=== PATIENT | female | born 1960 | race Caucasian/White ===

== ENCOUNTER 2016-08-24 07:42 | Emergency (ER) | payer OTHER ==
[~2016-08-24] VITALS: Ht 154.9 cm; Wt 63.5 kg
[2016-08-24] MEDS ORDERED: METF500T4 PO (08:27)
[2016-08-24 08:42] LABS: GLUCOSE,POINT OF CARE 270 MG/DL (70-110)
[2016-08-24] MEDS ORDERED: ONDANSETRON HCL 4 MG TABLET PO ONE (10:30)
[2016-08-24] MEDS ORDERED: IBUPROFEN 800 MG TABLET PO ONE (10:30)
[2016-08-24 12:26] VITALS: BP 114/71
== END 2016-08-24 12:47 | disposition home or self-care (01) ==
LOC: EMS 07:45
DX: J20.9 Acute bronchitis, unspecified (principal); E11.9 Type 2 diabetes mellitus without complications; E78.00 Pure hypercholesterolemia, unspecified
CPT/HCPCS: 71020; 82962; 99284; Q0162